=== PATIENT | male | born 1945 | race Caucasian/White ===

== ENCOUNTER 2016-10-05 15:23 | Emergency (ER) | payer OTHER, BC ==
[~2016-10-05] VITALS: Ht 172.7 cm; Wt 95.3 kg
[2016-10-05] MEDS ORDERED: CHILD ASPIRIN81 M1 PO (16:19)
[2016-10-05 16:48] LABS: CHLORIDE 103 mEq/L (99-109); POTASSIUM 4.2 mEq/L (3.7-5.4); SODIUM 140 mEq/L (136-147)
[2016-10-05 16:50] LABS: GLUCOSE 246 mg/dL (70-99)
[2016-10-05 16:51] LABS: ANION GAP 9 MEQ/L (2-14)
[2016-10-05 16:54] LABS: GFR ESTIMATE (CALCULATED) > 59 mL/min/; MCH 31.4 PG (29.0-34.0); MCHC 34.8 G/DL (30.0-36.0); MCV 90.3 FL (86-99); MEAN PLAT.VOLUME 9.9 uM^3 (9.0-12.4); PLATELET COUNT 198 K/uL (156-360); RBC DIS.WIDTH-CV 12.8 % (11.8-14.6); RBC DIS.WIDTH-SD 42.3 % (39-53); RED BLOOD COUNT 4.43 M/uL (4.00-5.50); WHITE BLOOD COUNT 6.1 K/uL (4.1-10.2)
[2016-10-05 16:55] LABS: UREA NITROGEN (BUN) 19 mg/dL (9-23)
[2016-10-05] MEDS ORDERED: BACTRIM,SEPT1 TABLET PO (18:04)
[2016-10-05 18:48] VITALS: BP 179/88
== END 2016-10-05 18:41 | disposition home or self-care (01) ==
LOC: EME 15:23 → EDBD 15:23 → EME 18:41
PROVIDERS: Emergency Medicine
DX: L03.116 Cellulitis of left lower limb (principal); S80.812A Abrasion, left lower leg, initial encounter; W11.XXXA Fall on and from ladder, initial encounter; Y93.H9 Activity, other involving exterior property and land maintenance, building and construction; Y92.009 Unspecified place in unspecified non-institutional (private) residence as the place of occurrence of the external cause; Z87.891 Personal history of nicotine dependence
CPT/HCPCS: 73590; 80048; 85027; 93971; 99281; 99285